=== PATIENT | female | born 1980 | race Caucasian/White ===

== ENCOUNTER 2023-08-22 00:07 | Day surgery (SDC) | payer OTHER, SELFPAY ==
[2023-08-21 14:04] VITALS: BMI 24.1
--- NOTE | 2023-08-21 14:46 | PC.NURSE ---
Report to the Outpatient Waiting Room, entrance under the green pavilion located off [facility], at time __6am__ on date ____08/22___. Planned Procedure Time: __730____. Time changes happen often and if your time is changed the preop area will call you the afternoon before. - You and your visitor will be asked to self-screen and do not enter if you have any COVID symptoms. - A mask is optional within the hospital at this time. Patients may have clear liquids (water, carbonated beverages, clear teas, apple juice) until 3 hours prior to surgery with a maximum of 20 ounces. stop at 430 - No food from midnight until time of surgery Take the following medications with a SIP of water the morning of surgery: wellbutrin DO NOT STOP ANY OF YOUR OTHER PRESCRIPTION MEDICATIONS PRIOR TO SURGERY ?EXCEPT THE FOLLOWING Medications to discontinue per physician NA Date to take last dose Please no make-up, nail egyptian, hairspray, perfume, deodorant, or body powder the day of surgery. No jewelry (including any body piercings) or valuables the day of surgery, leave them at home. Please take a shower or bath the night before, or the morning of, surgery with an antibacterial soap. Wear comfortable, loose fitting clothing. Children are encouraged to wear pajamas. - Jewelry must be removed prior to entering the operating room. Rings and piercings that are not removed may be cut off. - The hospital will not accept responsibility for valuables. - Please leave all valuables, including medications, at home the day of surgery. If you are going home after surgery, a licensed solid waste truck driver must drive you home. - NO public transportation without another adult if you receive anesthesia. - We recommend that an adult stay with you for 24 hours following discharge. - We also recommend that you do not drive, make important decision, drink alcoholic beverages, or take any drugs that were not prescribed by your health care provider for at least 24 hours after your discharge time. Follow any additional instructions given to you from your surgeon. If you or anyone in your household have experienced Covid symptoms in the past week, please notify your surgeon or the nurse liaison at the phone number below for possible testing. Telephone instructions given to patient and asked if any additional questions and then verbalized understanding. Patient advised to call surgeon office or pre surgery nurse liaison [phone] if any additional questions.
[2023-08-22] VITALS (10 sets, daily range): BP systolic 112–129; BP diastolic 72–91; PULSE 73–104; RESP 12–18; TEMP 36.4–36.5; O2SAT 97–100
--- NOTE | 2023-08-22 05:59 | ECG_ITS ---
Measurements Intervals [place] Rate: 74 P: 65 [place]: 175 QRS: 10 QRSD: 89 T: 19 QT: 366 QTc: 408 Interpretive Statements SINUS RHYTHM POSSIBLE LEFT ATRIAL ENLARGEMENT [-0.1mV P WAVE IN V1/V2] LOW QRS VOLTAGE IN PRECORDIAL LEADS [QRS DEFLECTION < 1.0 mV IN CHEST LEADS] NONSPECIFIC ST AND T-WAVE ABNORMALITY ABNORMAL ECG NO PREVIOUS ECG AVAILABLE FOR COMPARISON Electronically Signed On 08-22-2023 16:59:30 [employer] by Dany Neil M.D.
[2023-08-22] MEDS: LACTATED RINGERS 1,000 ML 30 ML IV CONT ×2 (06:45→10:11)
--- NOTE | 2023-08-22 06:49 | WPDANESEPPF ---
Anes - Initial Pre Proc Eval Procedure: Operation Date: 08/22/23 07:30 Proposed Procedures p Bilateral Breast Augmentation - Sha Cuellar MD s Bilateral Breast Mastopexy - Sha Cuellar MD Date/Time: 08/22/23 06:49 Surgeon: Sha Cuellar MD Pre Op Diagnosis: Bilateral Micromastia, Rolando Breast Ptosis Patient Data Age: 42 Gender: F Height: 1.65 m Weight: 64.7 kg Allergies Allergy/AdvReac Type Severity Reaction Status Date / Time No Known Allergies Allergy Unknown Verified 08/22/23 06:18 Home Medications Medication Instructions Recorded Confirmed Type bupropion HCl 300 mg 24 hr tablet, 300 mg PO DAILY 08/21/23 08/22/23 History extended release cetirizine 10 mg capsule (All Day 10 mg PO DAILY 08/21/23 08/22/23 History Allergy (cetirizine)) hydrochlorothiazide 25 mg tablet 25 mg PO DAILY 08/21/23 08/22/23 History lisinopril 20 mg tablet 20 mg PO DAILY 08/21/23 08/22/23 History Patient hx anesthesia problems: none Family hx anesthesia problems: none Results Review: All pre-operative results and documents have been reviewed as part of the pre-operative evaluation. [facility] Family History Family History Other Family history of Alzheimer's disease Family history of attention deficit hyperactivity disorder (ADHD) Family history of cardiovascular disease Family history of hearing loss Family history of malignant neoplasm Hypertension Social History Social History Smoking packs per day: 0.5 Smoking cigarettes per day: 10.0 Years smoked: 20 Smoking pack-years: 10.00 Smoking status: Former smoker Tobacco type: cigarettes Second hand tobacco smoke exposure: Yes Smoking end date: 08/16/23 Alcohol intake: current Drinks per week: 14 Substance use: never Substance use type: does not use Living arrangements: with family Spiritual care concerns: No Anes - Eval Final PreProcedure Day of Procedure 08/22/23 06:49 Patient weight: normal Heart: regular rate and rhythm Lungs: clear to auscultation Airway: Mallampati scale class II Neurological: alert and oriented Last oral intake: >/= 8 hours ASA classification: II Emergent: no Anesthetic plan: proceed Anesthesia type and monitoring: general LMA and standard monitoring Results Review: All pre-operative results and documents have been reviewed as part of the pre-operative evaluation. Informed Consent: The patient's anesthetic plan and its attendant risks and benefits were discussed with the patient/family/POA. Questions were solicited and answers provided to the satisfaction of the patient/family/POA.
[2023-08-22 06:59] LABS: Urine Cotinine NEGATIVE
[2023-08-22 07:02] LABS: Anion Gap 6 mmol/L (8-16); Blood Urea Nitrogen 18 mg/dL (7-17); Calcium 9.1 mg/dL (8.4-10.2); Carbon Dioxide 30 mmol/L (22-30); Chloride 100 mmol/L (98-107); Estimated CRCL calculation 81 ml/min; Estimated Glomerular Filt Rate > 60; Glucose 87 mg/dL (65-110); Potassium 3.2 mmol/L (3.4-5.0); Sodium 136 mmol/L (137-145)
--- NOTE | 2023-08-22 07:21 | WPDHPUPDATE1 ---
History and Physical Update Update Date/Time: 08/22/23 07:21 History and Physical has been reviewed, including an updated exam of the patient. There are NO changes in the patient's condition. Risks, benefits, and alternatives have been discussed and questions answered. Patient agrees to proceed with procedure.
--- NOTE | 2023-08-22 07:21 | W.PM.PROC2 ---
Procedure Note - Detailed Date of Procedure 08/22/23 Pre-op Diagnosis Bilateral Micromastia, Rolando Breast Ptosis Post-op Diagnosis Same Procedure Performed Bilateral augmentation mastopexy Surgeon Sha Cuellar MD Anesthesia General Findings Inverted T Superior pedicle Bilateral Nilda Rodriguez SoftTouch 440cc Right - REF# [id number] SN [id number] Left - REF# [id number] SN [id number] Description of Procedure She is here today for bilateral breast augmentation mastopexy. Previously and again today the risks, benefits, alternatives were discussed in extensive detail. I wanted her to be very realistic about the risks involved as well as expectations. We discussed aftercare and what to monitor for. Made sure answered all of her questions to her satisfaction today and consent was obtained. Marked in the preoperative holding area with their verification. The patient was taken to the operating room placed supine on the operating table. Anesthesia was provided by anesthesiology. A surgical time-out was taken. We cleansed the skin and 1% lidocaine and 0.25% Marcaine with epinephrine was used anesthetize as a field block. She was prepped and draped in a standard sterile fashion. Tegaderm nipple [place] were placed. A 15 blade used to make an incision just superior to the inframammary fold leaving a cusp of de-epithelized tissue at the t junction. Dissection was continued until the chest wall as identified. I incised the pectoralis major along its inferior border and completely released the inferior border leaving the medial border intact. I created a subpectoral pocket in the appropriate dimensions based on our preoperative planning for the implant. I then copiously irrigated with saline solution and verified a strict hemostasis. Next the use a triple antibiotic and Betadine containing solution to irrigate the pocket. I washed my gloves with the triple antibiotic and Betadine solution. We washed the implant immediately upon opening it with this solution and only opened it when we needed it. I used implant funnel and no-touch technique. The implant was introduced into the pocket using the funnel. Having verified positioning of the implant this was closed using 2-0 PDS. I tailor tacked the breast into position. Placed her in a sitting position. Verified the nipple-areolar location based on preoperative planning as well as intraoperative observations and measurements in full agreement. She was placed supine. I de-epithelialized the pedicle. I then removed the inferior central portion of the breast need making sure the implant was well protected. I elevated medial and lateral tissue flaps as well for planned closure. I closed along the IMF with 2-0 Stratafix. Along the vertical with 2-0 PDS. I closed around the areola with 3-0 strata fix. 3-0 Monocryl along the vertical. 3-0 Stratafix along the IMF. I finally closed everything with running subcuticular 4-0 Monocryl and tissue glue. Fluffs and surgical bra were placed. Estimated Blood Loss 50 Drains No Packing No Pathology None sent Complications No immediate complications Condition Stable Disposition PACU
[2023-08-22] MEDS: LIDO 1%/EPINEPHRINE 1:100,000 50 ML VIAL 30 ML INFILTRATE (07:28)
[2023-08-22] MEDS: BUPivacaine HCL 0.25% PF 30 ML VIAL INFILTRATE (07:28)
[2023-08-22] MEDS: NACL 0.9% IRRIG POUR BOTTLE 900 ML, GENTAMICIN SULFATE INJ 160 MG, ceFAZolin 2 GM, POVI... IRRIGATION (07:28)
[2023-08-22] MEDS: ceFAZolin 2 GM/D5W 50 ML 2 GM/50 ML BAG IVPB (07:28)
[2023-08-22] MEDS: TRANEXAMIC ACID 1,000MG/ISO100 1,000 MG/100 ML BAG 200 MG IVPB (07:37)
--- NOTE | 2023-08-22 07:53 | SUR.OPER ---
patient requested no updates to family during procedure
[2023-08-22] MEDS: fentaNYL CITRATE INJ (*CRX) 100 MCG/2 ML VIAL 25 MCG IV PUSH ×4 (10:28→11:01)
--- NOTE | 2023-08-22 10:46 | SUR.PHASEI ---
1045: Simple mask removed.
== END 2023-08-22 12:50 | disposition home or self-care (01) ==
PROVIDERS: Anesthesiology; Visit Provider Surgery Plastic and Reconstructive Surgery
PROC: (CPT 19325; principal; 2023-08-22 07:30)
PROC: (CPT 19316; 2023-08-22 07:30)
DX: Z41.1 Encounter for cosmetic surgery (principal); N64.82 Hypoplasia of breast; N64.81 Ptosis of breast; Z79.899 Other long term (current) drug therapy; Z87.891 Personal history of nicotine dependence
CPT/HCPCS: 19325; 19316; 36415; 80048; 80307; 93005; J0171; J0690; J1100; J1170; J1580; J2250; J2405; J2704; J3010; J7120

== ENCOUNTER 2024-05-21 09:58 | Outpatient (CLI) | payer BC, OTHER, SELFPAY ==
--- NOTE | ~2024-05-21 | US_ITS ---
US transvaginal Ordering provider: Lilo Conte, MALATHI History: . Abn uterine bleeding, pelvic pain . Comparison: None. Technique: Transabdominal and endovaginal ultrasound of the pelvis (Doppler ultrasound interrogation techniques used as needed for this exam.) FINDINGS: CERVIX: Normal. UTERUS: Measures 9.4x 4.8x 5.3 cm in length which is within normal limits and is anteverted. 3 x 5 x 3 mm hypoechoic area is seen which may be a small fibroid. Follow-up advised. ENDOMETRIUM: Normal in thickness measuring 7.9 mm. No endometrial masses, cysts or fluid. CUL DE SAC: No free fluid. RIGHT OVARY: Normal in size measuring 2.1x 1.6x 2.2 cm. Normal echotexture. Doppler vascular flow pre sent. LEFT OVARY: Normal in size measuring 3.5x 2.8x 2.6 cm. Normal echotexture. Doppler vascular flow pres ent. ADNEXA: Normal. No mass. IMPRESSION: Possible tiny hyperechoic area in the uterus. Differential includes small fibroid versus fat-containi ng lesion or hematoma. Follow-up advised. Otherwise, normal pelvic ultrasound. Reviewed, dictated and finalized at location A. IMPRESSION: Possible tiny hyperechoic area in the uterus. Differential includes small fibro id versus fat-containing lesion or hematoma. Follow-up advised. Otherwise, norm al pelvic ultrasound.
== END 2024-05-21 09:59 | disposition home or self-care (01) ==
LOC: MICIMG 10:00
PROVIDERS: PCP Nurse Practitioner Women's Health; Visit Provider Nurse Practitioner Women's Health
DX: N93.8 Other specified abnormal uterine and vaginal bleeding (principal)
CPT/HCPCS: 76830

== ENCOUNTER 2024-06-03 02:23 | Day surgery (SDC) | payer BC, OTHER, SELFPAY ==
[2024-05-28 14:32] VITALS: BMI 25.8
--- NOTE | 2024-05-28 14:36 | PC.NURSE ---
Report to the Outpatient Waiting Room, entrance under the green pavilion located off [facility], at time _0800_ on date _[id number]_. Planned Procedure Time: _1000_.? Time changes happen often and if your time is changed the preop area will call you the afternoon before. - You and your visitor will be asked to self-screen and do not enter if you have any COVID symptoms. Please call surgeon if you need to reschedule. - A mask is optional within the hospital at this time. Patients may have clear liquids (water, carbonated beverages, clear teas, apple juice) until 3 hours prior to surgery with a maximum of 20 ounces. - No food from midnight until time of surgery and no smoking Take only the following medications with a SIP of water on the morning of surgery: ____Bupropion DO NOT STOP ANY OF YOUR OTHER PRESCRIPTION MEDICATIONS PRIOR TO SURGERY EXCEPT THE FOLLOWING Medications to discontinue per physician None Please no make-up, nail azeri, hairspray, perfume, deodorant, or body powder the day of surgery.? No jewelry (including any body piercings) or valuables the day of surgery, leave them at home.? Please take a shower or bath the night before, or the morning of, surgery with an antibacterial soap.? Wear comfortable, loose fitting clothing.? - Jewelry must be removed prior to entering the operating room.? Rings and piercings that are not removed may be cut off. - The hospital will not accept responsibility for valuables.? - Please leave all valuables, including medications, at home the day of surgery. If you are going home after surgery, a licensed patrol driver must drive you home.? - NO public transportation without another adult if you receive anesthesia. - We recommend that an adult stay with you for 24 hours following discharge. - We also recommend that you do not drive, make important decision, drink alcoholic beverages, or take any drugs that were not prescribed by your health care provider for at least 24 hours after your discharge time. Follow any additional instructions given to you from your surgeon. Telephone instructions given to __Ivette__and asked if any additional questions and then verbalized understanding. Patient advised to call surgeon office or pre surgery nurse liaison [phone] if any additional questions.
--- NOTE | 2024-06-03 07:43 | WPDHPUPDATE1 ---
History and Physical Update Update Date/Time: 06/03/24 07:43 History and Physical has been reviewed, including an updated exam of the patient. There are NO changes in the patient's condition. Risks, benefits, and alternatives have been discussed and questions answered. Patient agrees to proceed with procedure.
--- NOTE | 2024-06-03 07:43 | PM.HPGS ---
History of Present Illness History of Present Illness Consent: Risks, benefits, and alternatives have been discussed and questions answered. Patient agrees to proceed with procedure. Chief complaint: Abnormal Uterine Bleeding Narrative: Ivette Staley is a 43 year old female with heavy and irregular cycles. It was recommended to undergo D&C hysteroscopy for further evaluation. Risks of infection, bleeding, perforation, and possible pathology are discussed. Patient voices understanding and agrees to proceed. Review of Systems Review of Systems: not repeated day of surgery; patient states no changes in status PMFSH Past Medical History Medical History (Updated 06/03/24 @ 07:46 by Brenda Villela MD) Depression History of IUFD 2004 2nd trimester HTN (hypertension) Migraines (normal spontaneous vaginal delivery) x2 Surgical History Surgical History (Updated 06/03/24 @ 07:46 by Brenda Villela MD) History of breast augmentation History of D&C 2004 History of splenectomy History of tonsillectomy Family History Family History Other Family history of Alzheimer's disease Family history of attention deficit hyperactivity disorder (ADHD) Family history of cardiovascular disease Family history of hearing loss Family history of malignant neoplasm Hypertension Social History Social History Smoking packs per day: 0.5 Smoking cigarettes per day: 10.0 Years smoked: 20 Smoking pack-years: 10.00 Smoking status: Former smoker Tobacco type: cigarettes Second hand tobacco smoke exposure: Yes Smoking end date: 07/28/23 Alcohol intake: current Drinks per week: 12 Substance use: never Substance use type: does not use Living arrangements: with family Spiritual care concerns: No Meds Home Medications and Allergies Home Medications Medication Instructions Recorded Confirmed Type bupropion HCl 300 mg 24 hr tablet, 300 mg PO DAILY 08/21/23 05/28/24 History extended release cetirizine 10 mg capsule (All Day 10 mg PO DAILY 08/21/23 05/28/24 History Allergy (cetirizine)) hydrochlorothiazide 25 mg tablet 25 mg PO DAILY 08/21/23 05/28/24 History lisinopril 20 mg tablet 20 mg PO DAILY 08/21/23 05/28/24 History Allergies Allergy/AdvReac Type Severity Reaction Status Date / Time No Known Allergies Allergy Unknown Verified 05/28/24 14:31 Exam Const: General: healthy appearing and alert Orientation/consciousness: patient oriented x3 Resp: Effort & Inspection: normal respiratory effort Auscultation: clear to auscultation bilaterally Cardio: Rate: regular rate Rhythm: regular rhythm GI: GI Palp: Yes Soft to palpation, No Tenderness to palpation present (GI) and No Palpable mass present : External Female Exam: normal external appearance Speculum Exam - Vagina: normal appearance of the vagina and normal vaginal discharge Speculum Exam - Cervix: normal appearance of the cervix Bimanual exam- vagina & uterus: uterine size normal and consistency normal Bimanual Exam- Adnexa, other: normal adnexae and No adnexal tenderness Neuro: General: patient oriented x3 Assessment and Plan Assessment and plan (1) Menorrhagia: Code(s): N92.0 - Excessive and frequent menstruation with regular cycle Status: Acute Assessment and Plan: plan to proceed with D&C hysteroscopy
[2024-06-03 08:16] VITALS: BP 153/100; PULSE 80; RESP 18; TEMP 36.2; O2SAT 100
[2024-06-03] MEDS: LACTATED RINGERS 1,000 ML 30 ML IV CONT (08:30)
[2024-06-03] MEDS: ACETAMINOPHEN 500 MG TABLET 1000 MG PO (08:47)
[2024-06-03 08:52] VITALS: BP 148/89
--- NOTE | 2024-06-03 09:51 | WPDANESEPPF ---
Anes - Initial Pre Proc Eval Procedure: Operation Date: 06/03/24 10:00 Proposed Procedures p Hysteroscopy Dilation and Curettage - Brenda Villela MD Date/Time: 06/03/24 09:51 Surgeon: Brenda Villela MD Pre Op Diagnosis: Abnormal Uterine Bleeding Patient Data Age: 43 Gender: F Height: 1.65 m Weight: 75.7 kg Last Vital Signs Temp 36.2 C L 06/03/24 08:16 Pulse 80 06/03/24 08:16 Resp 18 06/03/24 08:16 BP 148/89 H 06/03/24 08:52 Pulse Ox 100 06/03/24 08:16 O2 Del Method Room Air 06/03/24 08:16 Allergies Allergy/AdvReac Type Severity Reaction Status Date / Time No Known Allergies Allergy Unknown Verified 06/03/24 08:46 Home Medications Medication Instructions Recorded Confirmed Type bupropion HCl 300 mg 24 hr tablet, 300 mg PO DAILY 08/21/23 06/03/24 History extended release cetirizine 10 mg capsule (All Day 10 mg PO DAILY 08/21/23 06/03/24 History Allergy (cetirizine)) hydrochlorothiazide 25 mg tablet 25 mg PO DAILY 08/21/23 06/03/24 History lisinopril 20 mg tablet 20 mg PO DAILY 08/21/23 06/03/24 History Patient hx anesthesia problems: none Family hx anesthesia problems: none Results Review: All pre-operative results and documents have been reviewed as part of the pre-operative evaluation. [facility] Past Medical History Medical History Depression History of IUFD 2004 2nd trimester HTN (hypertension) Migraines (normal spontaneous vaginal delivery) x2 Surgical History Surgical History History of breast augmentation History of D&C 2004 History of splenectomy History of tonsillectomy Family History Family History Other Family history of Alzheimer's disease Family history of attention deficit hyperactivity disorder (ADHD) Family history of cardiovascular disease Family history of hearing loss Family history of malignant neoplasm Hypertension Social History Social History Smoking packs per day: 0.5 Smoking cigarettes per day: 10.0 Years smoked: 20 Smoking pack-years: 10.00 Smoking status: Former smoker Tobacco type: cigarettes Second hand tobacco smoke exposure: Yes Smoking end date: 07/28/23 Alcohol intake: current Drinks per week: 12 Substance use: never Substance use type: does not use Living arrangements: with family Spiritual care concerns: No Anes - Eval Final PreProcedure Day of Procedure 06/03/24 09:51 Patient weight: overweight Heart: regular rate and rhythm Lungs: clear to auscultation Airway: Mallampati scale class II Neurological: alert and oriented Last oral intake: >/= 8 hours ASA classification: II Emergent: no Anesthetic plan: proceed Anesthesia type and monitoring: general GIVS and standard monitoring Results Review: All pre-operative results and documents have been reviewed as part of the pre-operative evaluation. Informed Consent: The patient's anesthetic plan and its attendant risks and benefits were discussed with the patient/family/POA. Questions were solicited and answers provided to the satisfaction of the patient/family/POA.
[2024-06-03 10:16] VITALS: BP 116/71; PULSE 79; RESP 16; O2SAT 100
--- NOTE | 2024-06-03 10:19 | P.OP_ITS ---
Procedure Note - Detailed Date of Procedure 06/03/24 Pre-op Diagnosis Menorrhagia Post-op Diagnosis Same Procedure Performed D&C hysteroscopy Surgeon Brenda Villela MD Anesthesia MAC Findings uterus sounds to 8cm posterior endometrium is thickened without discrete lesions Description of Procedure The patient is taken to the operating room and placed under anesthesia in the dorsal lithotomy position. She was prepped and draped in usual sterile fashion. [place] speculum was placed in the vagina and the cervix grasped on the anterior lip with a tenaculum. The uterus is sounded to 8cm. The diagnostic hysteroscope was placed and with the above-stated findings the small Aveta resection device is placed. The posterior wall was resected. The hysteroscope was then removed and the sharp OO curette used to curette the endometrium until a good uterine cry was noted in all areas. All instruments were then removed. Sponge, needle, and instrument counts are correct per the OR staff. Patient was awakened from anesthesia and taken to recovery in stable condition. Estimated Blood Loss 5 Drains No Packing No Pathology Yes ( Endometrial shavings and curettings) Complications No immediate complications Condition Stable Disposition PACU
[2024-06-03 10:50] VITALS: BP 107/62; PULSE 70; RESP 16
[2024-06-03 11:20] VITALS: BP 128/76; PULSE 63; RESP 16
== END 2024-06-03 11:25 | disposition home or self-care (01) ==
PROVIDERS: PCP Family Medicine; Visit Provider Obstetrics & Gynecology Gynecology
PROC: 0U5B8ZZ Destruction of Endometrium, Via Natural or Artificial Opening Endoscopic (ICD-10-PCS; CPT 58563; principal; 2024-06-03 10:00)
DX: R93.89 Abnormal findings on diagnostic imaging of other specified body structures (principal); F32.A Depression, unspecified; I10 Essential (primary) hypertension; Z98.890 Other specified postprocedural states; Z90.81 Acquired absence of spleen; Z87.891 Personal history of nicotine dependence; Z80.9 Family history of malignant neoplasm, unspecified; Z82.49 Family history of ischemic heart disease and other diseases of the circulatory system
CPT/HCPCS: 58558; 88305; A9270; J2250; J2704; J3010; J7120